=== PATIENT | female | born 1990 | race Caucasian/White ===

== ENCOUNTER 2016-11-29 11:50 | Emergency (ER) | payer SELFPAY ==
[~2016-11-29] VITALS: Ht 160 cm; Wt 52.4 kg
[2016-11-29 13:51] LABS: PATH.CAST-FLAG NOT PRESENT; SPERM-FLAG NOT PRESENT; SRC-FLAG NOT PRESENT; XTAL-FLAG NOT PRESENT; YLC-FLAG NOT PRESENT
[2016-11-29 13:52] LABS: HCG UR OBC PASS
[2016-11-29 14:49] VITALS: BP 103/70
== END 2016-11-29 15:04 | disposition home or self-care (01) ==
LOC: ED 12:19
DX: T74.21XA Adult sexual abuse, confirmed, initial encounter (principal); S80.212A Abrasion, left knee, initial encounter; S80.211A Abrasion, right knee, initial encounter; S60.812A Abrasion of left wrist, initial encounter; S60.811A Abrasion of right wrist, initial encounter; S09.90XA Unspecified injury of head, initial encounter; X58.XXXA Exposure to other specified factors, initial encounter; Y93.89 Activity, other specified; Y92.89 Other specified places as the place of occurrence of the external cause; Y99.8 Other external cause status
CPT/HCPCS: 70450; 81001; 81025